=== PATIENT | male | born 1950 | race Caucasian/White ===

== ENCOUNTER 2023-11-03 10:55 | Emergency (ER) | payer OTHER ==
[~2023-11-03] VITALS: Ht 167.6 cm; Wt 63.0 kg
[2023-11-03 10:59] VITALS: BP 159/59; PULSE 60; RESP 20; TEMP 98; O2SAT 99
[2023-11-03 11:15] VITALS: O2SAT 99
[2023-11-03] MEDS ORDERED: AMOX1TAB8 PO (11:31)
[2023-11-03 11:45] VITALS: BP 145/62; PULSE 66; RESP 20; TEMP 98; O2SAT 99
== END 2023-11-03 11:45 | disposition home or self-care (01) ==
LOC: MED 10:55
DX: J32.9 Chronic sinusitis, unspecified (principal); R50.9 Fever, unspecified; Z79.2 Long term (current) use of antibiotics
CPT/HCPCS: 99283

== ENCOUNTER 2023-12-25 06:20 | Emergency (ER) | payer OTHER ==
[~2023-12-25] VITALS: Ht 170.2 cm; Wt 61.2 kg
[~2023-12-25 06:20] MED LIST: AMOX1TAB8 PO
[2023-12-25 06:24] VITALS: BP 194/137; PULSE 90; RESP 16; TEMP 98; O2SAT 98
[2023-12-25] MEDS ORDERED: NAPR-1704 PO (06:55)
[2023-12-25] MEDS ORDERED: LORA1T1237 PO (06:55)
[2023-12-25] MEDS ORDERED: SODI1PKT7 NS (06:55)
[2023-12-25] MEDS ORDERED: FLONAS NS (06:55)
[2023-12-25 07:02] VITALS: BP 156/70; PULSE 90; RESP 16; TEMP 98; O2SAT 98
== END 2023-12-25 07:03 | disposition home or self-care (01) ==
LOC: MED 06:20
DX: J32.9 Chronic sinusitis, unspecified (principal); I10 Essential (primary) hypertension; Z79.899 Other long term (current) drug therapy
CPT/HCPCS: 99282